=== PATIENT | female | born 1955 | race Caucasian/White ===

== ENCOUNTER 2016-10-30 11:30 | Day surgery (SDC) | payer OTHER, MEDICARE ==
[~2016-10-30 11:30] MED LIST: LACTATED RINGERS 1,000 ML IV SCH; SODIUM CHLORIDE FLUSH 3 ML SYR IV PRN
--- OUTSIDE RECORDS SUMMARY | 2016-10-30 11:34 | XMS REPORT | Summary of Care ---
Author Author Alexandro Mcmullen M.D. Organization Unknown Address Unknown Phone Unavailable Care Team Providers Care Comic Book Writer Name Role Phone Kemi Walker, [place] Unavailable Unavailable Romy Wilkins Unavailable Unavailable Unavailable Unavailable Functional Status Name Dates Details Functional status health issues are not documented Status: Name Dates Details Cognitive status health issues are not documented Status: Problems Name Dates Details Chronic maxillary sinusitis (473.0, J32.0) Status: Active Medications Name Dates Details Amlodipine-Atorvastatin 5-20 MG Oral Tablet Refills: 0 Start -Jul-2016 Active Cyclobenzaprine HCl - 10 MG Oral Tablet Refills: 0 Start 25-Jul-2016 Active Cymbalta 60 MG Oral Capsule Delayed Release Particles Refills: 0 Start 25-Jul-2016 Active Imitrex 100 MG Oral Tablet Refills: 0 Start 25-Jul-2016 Active Levothyroxine Sodium 88 MCG Oral Tablet Refills: 0 Start 25-Jul-2016 Active MetFORMIN HCl - 500 MG Oral Tablet Refills: 0 Start 25-Jul-2016 Active Percocet 10-325 MG Oral Tablet Refills: 0 Start 25-Jul-2016 Active Valsartan 40 MG Oral Tablet Refills: 0 Start -Jul-2016 Active Vyvanse 70 MG Oral Capsule Refills: 0 Start -Jul-2016 Active Topamax 100 MG Oral Tablet Refills: 0 Start 17-Oct-2016 Active Mirtazapine 7.5 MG Oral Tablet Refills: 0 Start 17-Oct-2016 Active Vitamin D (Ergocalciferol) 75032 UNIT Oral Capsule Refills: 0 Start 17-Oct-2016 Active LevoFLOXacin 500 MG Oral Tablet TAKE 1 TABLET DAILY DIRECTED. Quantity: 10 Refills: 1 Alexandro Mcmullen M.D. Start 17-Oct-2016 Active Allergies and Adverse Reactions Name Dates Details Bactrim (Allergy) Status: Active Keflex (Allergy) Status: Active Minocin (Allergy) Status: Active Penicillins (Allergy) Status: Active Procedures Procedure Dates Details History of Foot Surgery History of Sinus Surgery History of Cholecystectomy History of Laminectomy Cervical History of Knee Surgery History of Bladder Surgery History of Reported Hx Of 'Facelift' History of Blepharoplasty Upper Lid W/ Excessive Skin History of Dental Surgery History of Tonsillectomy With Adenoidectomy NASAL CAVITY CULTURE T95926 Ordered: 17-Oct-2016 Immunization Name Dates Details Immunizations not documented Family History Name Dates Details Family history of diabetes mellitus (V18.0, Z83.3) Comments: Family History Status: Active Family history of cardiac disorder (V17.49, Z82.49) Comments: Family History Status: Active Family history of lung cancer (V16.1, Z80.1) Comments: Family History Status: Active Name Dates Details Family history of lung disease (V19.8, Z83.6) Status: Active Name Dates Details Family history of diabetes mellitus (V18.0, Z83.3) Status: Active Family history of cardiac disorder (V17.49, Z82.49) Status: Active Family history of lung cancer (V16.1, Z80.1) Status: Active Family history of hypertension (V17.49, Z82.49) Status: Active Family history of lung disease (V19.8, Z83.6) Status: Active Name Dates Details Family history of cardiac disorder (V17.49, Z82.49) Status: Active Family history of hypertension (V17.49, Z82.49) Status: Active Name Dates Details Family history of cardiac disorder (V17.49, Z82.49) Status: Active Family history of hypertension (V17.49, Z82.49) Status: Active Family history of lung disease (V19.8, Z83.6) Status: Active Family history of type C viral hepatitis (V18.8, Z83.1) Status: Active Family history of suicide (V17.0, Z81.8) Status: Active Social History Name Dates Details - Status: Name Dates Details Former smoker Vital Signs Date Test Result Details 17-Oct-2016 08:56 Temperature 99 f Status: Comments: Method: Heart Rate 72 /min Status: Comments: Location: ; Weight 166 lb Status: Results Date Description Value Details 17-Oct-2016 14:56 PROTIME PANEL 7000 PROTIME 12.4 secs Range: 12.0-14.9 INR 0.96 14:57 PTT 7500 PTT 28.8 secs Range: 23.0-34.7 15:03 LIVER PROFILE 1215 ALK PHOSPHATASE 82 U/L Range: 46-116 TOTAL BILIRUBIN 0.20 mg/dL Range: 0.20-1.00 DIRECT BILIRUBIN 0.10 mg/dL Range: 0.00-0.20 AST 21 U/L Range: 8-35 ALT 22 U/L Range: 14-59 ALBUMIN 3.7 g/dL Range: 3.4-5.0 TOTAL PROTEIN 6.9 g/dL Range: 6.4-8.2 15:09 CBC w/ Auto Diff 7150 WBC 5.0 K/uL Range: 4.5-11.0 RBC 3.95 mil/uL Range: 3.60-5.00 HGB 12.0 g/dL Range: 12.0-16.0 HCT 38.1 % Range: 36.0-48.0 MCV 96.4 fL Range: 80.0-99.0 MCH 30.5 pg Range: 27.3-32.5 MCHC 31.6 % (Below low threshold) Range: 32.0-36.0 RDW 14.2 % Range: 11.6-14.8 PLATELETS 228 K/uL Range: 150-400 MPV 7.3 fL Range: 6.0-11.0 %NEUTRO 55.2 % Range: 37.0-80.0 %LYMPHS 31.9 % Range: 13.0-50.0 %MONO 6.5 % Range: 0.0-12.0 %EOS 3.0 % Range: 0.0-7.0 %BASO 0.7 % Range: 0.0-2.5 %ADRIANO 2.7 % Range: 0.0-5.0 NEUTRO 2.8 K/uL Range: 2.0-6.9 LYMPHS 1.6 K/uL Range: 0.6-3.4 MONOS 0.3 K/uL Range: 0.0-0.9 EOS 0.2 K/uL Range: 0.0-0.7 BASO 0.0 K/uL Range: 0.0-0.2 Plan of Care Name Dates Details Planned Observations Planned Goals not documented Planned Encounters Appointment; Provider: Baudilio Troy M.D. On 09-Nov-2016 10:15 Appointment; Provider: Alexandro Mcmullen M.D. On 30-Oct-2016 11:00 Interventions Provided Medication ChangesLevoFLOXacin 500 MG Oral Tablet - StartLabs/Procedures/ ImagingNASAL CAVITY CULTURE V65035; [facility] 7150 ; Done: Oct 17 2016 10:10AMLIVER PROFILE 1215; Done: Oct 17 2016 10:10AMPROTIME PANEL 7000; Done: Oct 17 2016 10:10AMPTT 7500; Done: Oct 17 2016 10:10AM Instructions Name Dates Details Instructions not documented Encounters Appointment; Alexandro Mcmullen M.D. Encounter Diagnosis: Problem not documented On 17-Oct-2016 08:30
[2016-10-30 11:41] VITALS: BP 120/72
[2016-10-30] MEDS ORDERED: VALS40TA8 PO (12:08)
[2016-10-30] MEDS ORDERED: LEVO88TA2 PO (12:08)
[2016-10-30] MEDS ORDERED: ARIP2TAB9 PO (12:08)
[2016-10-30] MEDS ORDERED: CYCL10TA45 PO (12:08)
[2016-10-30] MEDS ORDERED: INDO50CA PO (12:08)
[2016-10-30] MEDS ORDERED: TOPI100T38 PO (12:08)
[2016-10-30] MEDS ORDERED: DULO60CA7 PO (12:08)
[2016-10-30] MEDS ORDERED: METF500T4 PO (12:08)
[2016-10-30] MEDS ORDERED: LISD70CA PO (12:08)
[2016-10-30] MEDS ORDERED: AML5T PO (12:08)
[2016-10-30] MEDS ORDERED: HYDROmorphone 1 MG/ML (DILAUDID) SYRINGE ONE ×3 (12:20→15:46)
[2016-10-30] MEDS ORDERED: HYDROmorphone 1 MG/ML (DILAUDID) SYRINGE IV SCH (12:20)
[2016-10-30] MEDS ORDERED: OXYMETAZOLINE 0.05% NASAL SPRAY (AFRIN) 15 ML BTL ONE (13:03)
[2016-10-30] MEDS ORDERED: LIDOCAINE/EPINEPHRINE 1%-1:100,000 (XYLOCAINE) 20ML VIAL ONE (13:03)
[2016-10-30] MEDS ORDERED: SUCCINYLCHOLINE 20 MG/ML 10 ML VIAL ONE (13:31)
[2016-10-30] MEDS ORDERED: PROPOFOL 20 ML IV ONE (13:31)
[2016-10-30] MEDS ORDERED: ALFENTANIL 1,000 MCG/2 ML AMP IV ONE (13:32)
[2016-10-30 16:04] VITALS: BP 139/68
[2016-10-30] MEDS ORDERED: ACETAMINOPHEN/CODEINE 300MG/30 MG (TYLENOL #3) TABLET PO PRN (16:15)
[2016-10-30] MEDS ORDERED: ONDANSETRON 2 MG/ML (Z0FRAN) 2 ML VIAL IV PRN (16:15)
[2016-10-30 16:21] VITALS: BP 142/81
[2016-10-30 16:45] VITALS: BP 145/87
[2016-10-30] MEDS ORDERED: HYPERTONIC SALINE IRRIGATION 1000 ML BTL IR SCH (21:00)
--- NOTE | 2016-10-31 09:43 | OPERATIVE REPORT ---
DATE OF OPERATION: 10/30/2016 [facility] NO: [id number] PRE-OPERATIVE DIAGNOSIS: Nasal septal deviation with airway obstruction and chronic maxillary sinusitis bilateral, headaches behind the eyes. POST-OPERATIVE DIAGNOSIS: Nasal septal deviation with airway obstruction and chronic maxillary sinusitis bilateral, headaches behind the eyes. OPERATIVE PROCEDURE: 1. Right maxillary antrostomy. 2. Left maxillary antrostomy. 3. Septoplasty. SURGEON: Alexandro Mcmullen M.D. ANESTHESIA: General endotracheal INDICATIONS: This is a 61-year-old female with a history of chronic sinusitis and previous endoscopic sinus surgery and previous septoplasty. OPERATIVE FINDINGS: Right-sided nasal septal deviation with upper airway obstruction and missed ostium sequence each maxillary sinus with mucopurulent drainage bilateral. OPERATIVE NOTE: Following informed consent, the patient was taken to the Operating Room and placed in a supine position. Satisfactory general endotracheal anesthesia was obtained. The patient was prepped for surgery with Afrin nasal spray and 1% lidocaine with epinephrine. LEFT MAXILLARY ANTROSTOMY: The left side of the nose was endoscopically evaluated using a #0 degree 4 mm telescope. The natural ostium of the maxillary sinus was hidden among scar tissue in the uncinate process. This was opened with a J-seeker and a backbiter removing scar tissue and opening up to the natural ostium of the sinus. This was done with the curved suction microdebrider. Removing the bone also exposed some of the periorbital fat around the eye, which was not disturbed. Next the natural ostium was joined to the accessory ostium using a push-pull knife and a curved suction microdebrider. This widely opened the natural ostium of the maxillary sinus and the sinus itself was irrigated with saline and suctioned until clear. Afrin pack was placed in the middle meatus. RIGHT MAXILLARY ANTROSTOMY: Next the right side of the nose was endoscopically evaluated using the 0-degree 4-mm telescope. There was retained uncinate and this was removed with a J-seeker and the backbiter. The natural ostium of the maxillary sinus was joined to the accessory ostium using the push-pull knife and this ridge of tissue was removed with the curved suction microdebrider. The sinus was irrigated with saline and then suctioned until clear. Afrin pack was placed in the middle meatus. SEPTOPLASTY: Next a high right-sided incision was made in the mucoperichondrium of the nasal septum with a #15 blade and elevated with a freer elevator. Following this a cartilage incision was made and the inferior aspect of the perpendicular plate of the ethmoid was trimmed with a Mindy double-action rongeur. This allowed them to swing back to the midline, opening up the right side of the nose. Vicryl suture was placed to put the flaps back in place. No additional packing was required. Next, the middle turbinates were sutured to the midline using a [id number] 4-0 Vicryl suture in a mattress fashion. This opened the middle meatus widely on each side. Both sides of the nose were again irrigated with saline and suctioned until clear. Afrin packs were placed bilaterally. The patient was awakened and taken to the Recovery Room in good condition.
== END 2016-10-30 16:59 | disposition home or self-care (01) ==
LOC: ASC 11:30
PROVIDERS: ATTEND Otolaryngology
DX: J34.2 Deviated nasal septum (principal); J32.0 Chronic maxillary sinusitis; I10 Essential (primary) hypertension; E11.9 Type 2 diabetes mellitus without complications; Z79.84 Long term (current) use of oral hypoglycemic drugs; Z87.891 Personal history of nicotine dependence
CPT/HCPCS: 30520; 31256; J0330; J1170; J7120